=== PATIENT | male | born 1960 | race Caucasian/White ===

== ENCOUNTER → 2023-09-21 09:51 | Outpatient (REF) | payer OTHER, SELFPAY | LOC: HWRAD 09:51 | PROVIDERS: ATTENDING PHYSICIAN Family Medicine | DX: M54.16 Radiculopathy, lumbar region (principal); M62.830 Muscle spasm of back | CPT/HCPCS: 72110 ==

== ENCOUNTER → 2023-10-29 12:28 | Outpatient (REF) | payer OTHER, SELFPAY ==
[2023-10-29 16:23] LABS: % Basophils 0.7 % (0-2); % Eosinophils 4.7 % (0-6); % Immature Granulocytes 0.2 % (0-0.5); % Lymphocytes 20.9 % (20.5-51.1); % Monocytes 11.3 % (1.7-9.3); % Neutrophils 62.2 % (42.2-75.2); Absolute Eosinophils 0.2 10^3/uL (0-0.7); Absolute Lymphocytes 0.9 10^3/uL (1.2-3.4); Absolute Monocytes 0.5 10^3/uL (0.1-0.6); Absolute Neutrophils 2.5 10^3/uL (1.4-6.5); Hematocrit 43.5 % (39.0-52.0); Hemoglobin 15.2 g/dL (13.0-18.0); Mean Corp Hgb Conc. 34.9 g/dL (33.0-37.0); Mean Corpuscular Hgb 30.5 pg (27.0-31.0); Mean Corpuscular Volume 87.3 fL (80.0-94.0); Mean Platelet Volume 11.1 fL (7.4-10.4); Nucleated Red Blood Cells % 0 % (-); Platelet Count 222 10^3/uL (130-400); Red Blood Cell Count 4.98 10^6/uL (4.70-6.10); Red Cell Dist. Width 12.5 % (11.5-14.5); White Blood Cell Count 4.1 10^3/uL (4.8-10.8)
[2023-10-29 16:26] LABS: ALT (SGPT) 28 U/L (0-50); AST (SGOT) 26 U/L (17-59); Albumin 4.1 g/dl (3.5-5.0); Alkaline Phosphatase 69 U/L (38-126); Blood Urea Nitrogen 17 mg/dl (9-20); Calcium 9.4 mg/dl (8.4-10.2); Carbon Dioxide 28 mmol/L (22-30); Chloride 106 mmol/L (98-107); Glucose 108 mg/dl (70-99); HDL Cholesterol 38 mg/dl; LDL Cholesterol, Calculated 78 mg/dl; Sodium 137 mmol/L (135-145); Total Bilirubin 0.7 mg/dl (0.2-1.3); Total Cholesterol 138 mg/dl (50-199); Total Protein 7.5 g/dl (6.3-8.2); Triglyceride 113 mg/dl (10-149); Very Low Density Lipoprotein 22 mg/dl (0-30); eGFR > 60.00
[2023-10-29 16:56] LABS: TSH 3.45 uIU/ml (0.47-4.68)
[2023-10-30 08:32] LABS: Glycohemoglobin (HgbA1c) 5.7 % (4.0-5.6)
== END ==
LOC: HWLAB 12:28
PROVIDERS: ATTENDING PHYSICIAN Family Medicine
DX: Z13.29 Encounter for screening for other suspected endocrine disorder (principal); R73.01 Impaired fasting glucose; Z68.35 Body mass index [BMI] 35.0-35.9, adult; Z12.5 Encounter for screening for malignant neoplasm of prostate
CPT/HCPCS: 36415; 80053; 80061; 83036; 84443; 85025

== ENCOUNTER 2023-11-05 09:58 | Outpatient (RCR) | payer OTHER, SELFPAY | END 2023-11-05 23:59 | disposition home or self-care (01) | LOC: RPT 09:58 | PROVIDERS: ATTENDING PHYSICIAN Family Medicine | DX: M54.16 Radiculopathy, lumbar region (principal); M62.830 Muscle spasm of back; Z73.6 Limitation of activities due to disability; R29.3 Abnormal posture | CPT/HCPCS: 97010; 97110; 97112; 97161; 97530 ==

== ENCOUNTER 2023-11-27 12:02 | Outpatient (RCR) | payer OTHER, SELFPAY | END 2023-11-27 23:59 | disposition home or self-care (01) | LOC: RPT 12:02 | PROVIDERS: ATTENDING PHYSICIAN Family Medicine | DX: M54.16 Radiculopathy, lumbar region (principal); M62.830 Muscle spasm of back; Z73.6 Limitation of activities due to disability | CPT/HCPCS: 97110; 97112 ==

== ENCOUNTER → 2024-05-15 08:28 | Outpatient (REF) | payer OTHER, SELFPAY ==
[2024-05-15 12:23] LABS: ALT (SGPT) 30 U/L (0-50); AST (SGOT) 23 U/L (17-59); Albumin 4.3 g/dl (3.5-5.0); Alkaline Phosphatase 50 U/L (38-126); Direct Bilirubin 0.2 mg/dl (0.0-0.4); HDL Cholesterol 41 mg/dl; LDL Cholesterol, Calculated 84 mg/dl; Total Bilirubin 0.7 mg/dl (0.2-1.3); Total Cholesterol 148 mg/dl (50-199); Total Protein 7.5 g/dl (6.3-8.2); Triglyceride 117 mg/dl (10-149); Very Low Density Lipoprotein 23 mg/dl (0-30)
[2024-05-15 12:52] LABS: PSA, Total - Screen 1.33 ng/ml (0.0-4.0); TSH 3.28 uIU/ml (0.47-4.68)
[2024-05-15 13:24] LABS: Glycohemoglobin (HgbA1c) 5.3 % (4.0-5.6)
== END ==
LOC: HWLAB 08:28
PROVIDERS: ATTENDING PHYSICIAN Family Medicine
DX: Z12.5 Encounter for screening for malignant neoplasm of prostate (principal); R73.01 Impaired fasting glucose; E78.2 Mixed hyperlipidemia; Z77.090 Contact with and (suspected) exposure to asbestos
CPT/HCPCS: 36415; 71046; 80061; 80076; 83036; 84443; G0103

== ENCOUNTER 2025-06-17 12:45 | Emergency (ER) | payer OTHER, SELFPAY ==
--- NOTE | 2025-06-17 17:19 | ED.GENMED ---
History of Present Illness
General
Chief Complaint: Fall
Source: patient
Time Seen by Provider: 06/17/25 16:31
History of Present Illness
History of Present Illness:
64-year-old male with no reported past medical history presents to the emergency department for evaluation of of left knee pain stating that when he went to go get up from the chair his left knee just gave out causing him to fall down towards the
ground, patient notes that he has known arthritis in his left knee and has been told he needs a knee replacement. He states that there is considerable pain and swelling to the left knee with decreased range of motion secondary to the above. He
denies any fevers or infectious symptoms, calf pain or edema or any other concerns.
Past History
Past History
ED Past Medical History: None
ED Past Surgical History: Orthopedic
Social History
Tobacco: Non-smoker
Alcohol: None
Drug: None
Personal:
Living: with family
Employment: Employed
Review of Systems
Review of Systems
All Other Systems: ROS reviewed and negative except as documented in HPI and ROS
Phy Exam
Physical Exam
Physical Exam:
GENERAL: Alert , in no apparent distress
EYE: conjunctiva clear
Head: Normocephalic atraumatic
NECK: Supple,
ENT: mmm.
LUNGS: no acute respiratory distress
NEUROLOGICAL: Alert and oriented
SKIN: Warm and dry, skin intact.
MUSCULOSKELETAL: Left knee: Moderate soft tissue swelling and joint effusion noted. There is no overlying erythema or breaks in the skin. Active and passive range of motion are limited secondary to the pain and swelling. Extremity is otherwise
warm and well-perfused.
PSYCH: Normal and appropriate interaction.
Scores
Heart Failure Risk
Heart Failure Risk Score: Not Applicable
Heart Score for Chest Pain Patients
STEMI patient?: Not applicable
Withdrawal Assessment of Alcohol
Withdrawal Assessment Completed?: Not applicable
Course
Orders/Labs/Results
Orders:
Orders
06/17/25 12:56
Knee, Left 4 or More Views [CR Knee - Left 4 Or More View*] Urgent
Comment: hx arthritis
Reason For Exam: fell and bend knee back. + swelling
06/17/25 17:22
Krunal Wrap Left-Treatment ONCE
06/17/25 17:25
Body Fluid Cell Count Urgent
What is the Body Fluid: joint
Date Specimen was Collected: 06/17/25
Time Specimen was Collected: 17:24
Comment: with DIFF
Body Fluid Crystals Urgent
What is the Body Fluid: joint
Date Specimen was Collected: 06/17/25
Time Specimen was Collected: 17:24
Lyme Progressive Urgent
Fluid Culture with Gram Stain Urgent
RAJ Source: Joint Fluid
Specimen Description:
Date Specimen was Collected: 06/17/25
Time Specimen was Collected: 17:24
Vital Signs
Initial and Last Documented VS:
Initial Vital Signs
Temp Pulse Resp Pulse Ox
98.2 F 87 16 98
06/17/25 12:52 06/17/25 12:52 06/17/25 12:52 06/17/25 12:52
Last Documented Vital Signs
Temp Pulse Resp Pulse Ox
98.2 F 87 16 98
06/17/25 12:52 06/17/25 12:52 06/17/25 12:52 06/17/25 17:21
Procedures
Incision/Drainage/Joint Aspiration
Left Knee:
Anethesia: 1% Lidocaine
Preparation: cleaned with Betadine
Type of procedure: aspiration
How much fluid was obtained?: number in mls (60)
Fluid description: clear, straw colored and blood tinged
Treatment: bandaid applied
MDM/Problems Addressed
Differential Diagnosis Includes:
Joint effusion
OA
No outward signs of septic joint
Gout
Pseudogout
Fracture
Sprain
Meniscal injury
MDM/Problems Addressed:
64-year-old male presenting to the ER for evaluation of left knee pain. X-ray showing significant osteoarthritic changes. Joint effusion noted. Patient was consented for left knee arthrocentesis which yielded approximately 60 mL of blood-tinged
yellow clear synovial fluid. Patient reports relief following completion of the procedure. Fluid sent off for analysis. Will send patient home with steroid taper. Can continue anti-inflammatories, compression and ice as needed for pain. He will
follow-up with his orthopedist at [facility].
*Pulse Oximetry
SaO2: 98
Oxygen Mode of Delivery: Room air
Patient hypoxic: no
*Critical Care Note
Total Time (30-74mins, 75-104mins- exclusive of procedures): Not Applicable
ED Attending Note
-
Portions of this chart may have been created with voice recognition software.� Occasional wrong word or��sound alike� substitutions may have occurred due to the inherent limitations of voice recognition software.
Discharge Plan
Departure
Patient Disposition: Home (Routine Discharge)
Date of Disposition: 06/17/25
Time of Disposition: 17:20
Patient with high blood pressure during this ER visit?: No
Discharge Problem:
Effusion of knee joint, left
Instructions: Knee pain - ED (DC)
Prescriptions:
New
prednisone 10 mg Tablet
See Rx Instructions .ROUTE .COMPLEX Qty: 30 0RF
Rx Instructions:
Take By Mouth:
40 mg daily x3 days, 30 mg daily x3 days,
20 mg daily x3 days, 10 mg daily x3 days.
Referrals:
Annabelle De Guzman DO [Family Provider, Family Practice]
Interventions
Interventions:
*Risk Screen - Suicide Last Done: 06/17/25 12:56
*General Assessment Last Done: 06/17/25 12:52
*Neglect/Abuse Screening Last Done: 06/17/25 12:52
*ED COVID-19 Vaccine History Last Done: 06/17/25 12:52
*ED Influenza Vaccine History Last Done: 06/17/25 12:52
Discharge Date and Time
Print Language: KINYARWANDA
[2025-06-17 19:42] LABS: Body Fluid Second Tech DW
[2025-06-22 20:00] LABS: Lyme Disease DNA by PCR Not Detected; Lyme Source Synovial fluid
== END 2025-06-17 17:40 | disposition home or self-care (01) ==
LOC: EMR 12:45
PROVIDERS: Physician Assistant Medical; EMERGENCY PHYSICIAN Student in an Organized Health Care Education/Training Program; FAMILY PHYSICIAN Family Medicine
DX: M25.462 Effusion, left knee (principal); M79.89 Other specified soft tissue disorders
CPT/HCPCS: 20610; 99284; 73564; 86618; 87015; 87070; 87205; 87476; 89051; 89060